=== PATIENT | female | born 1990 | race Caucasian/White ===

== ENCOUNTER 2023-06-04 16:22 | Emergency (ER) | payer BC ==
[~2023-06-04] VITALS: Ht 160 cm; Wt 70.8 kg
[2023-06-04 16:50] VITALS: BP_SYST 138; PULSE 92; RESP 18; TEMP 98; O2SAT 100
[2023-06-04] MEDS ORDERED: DIPHENHYDRAMINE HCL 50 MG CAPSULE PO ONE (17:00)
[2023-06-04] MEDS ORDERED: predniSONE 20 MG TABLET PO ONE (17:00)
[2023-06-04] MEDS ORDERED: DIPHENHYDRAMINE HCL 25 MG CAPSULE ONE (17:03)
[2023-06-04] MEDS ORDERED: PRED20TA PO (17:54)
[2023-06-04] MEDS ORDERED: DIPH25CA83 PO (17:54)
[2023-06-04] MEDS ORDERED: EPIN0.3P3 IM (17:54)
[2023-06-04 18:00] VITALS: RESP 16; O2SAT 99
== END 2023-06-04 18:39 | disposition home or self-care (01) ==
LOC: SED 16:22
DX: L29.9 Pruritus, unspecified (principal); T37.0X5A Adverse effect of sulfonamides, initial encounter; Z79.899 Other long term (current) drug therapy; Y92.89 Other specified places as the place of occurrence of the external cause
CPT/HCPCS: 99283; Q0163; J7512